=== PATIENT | female | born 1935 | race Caucasian/White ===

== ENCOUNTER 2016-10-12 03:01 | Emergency (ER) | payer MEDICARE, BC ==
[~2016-10-12] VITALS: Ht 167.6 cm; Wt 75.0 kg
[~2016-10-12 03:01] MED LIST: ASPI81TA82 PO; BIOT10004 PO; CALC-179 PO; COLON HEALTH; COZA100T PO; LOMO PO
[2016-10-12 03:04] VITALS: BP 206/89; PULSE 93; RESP 18; TEMP 98.4; O2SAT 97
[2016-10-12 05:06] VITALS: BP 220/95; PULSE 73; RESP 16; O2SAT 97
--- NOTE | 2016-10-12 05:52 | PD ---
HPI Chief Complaint: Hypertension Time Seen by Provider: 05:49 Travel History International Travel<30 days: No Contact w/Intl Traveler<30days: No Traveled to known affect area: No History of Present Illness HPI 81-year-old female with history of hypertension, poorly controlled on 3 medications, her primary care physician has sent her to Dr. Cruz, cardiology , for further evaluation and she has had a normal echo cardiogram. She is being set up for an outpatient stress test. She states that she woke out of sleep feeling diaphoretic and had a headache today, took her blood pressure and it was 200/100. She called her primary care physician and was told to come to the hospital for further evaluation. She denies any current chest pains, shortness of breath, or any other symptoms. She still is having a headache which is currently a 5 out of 10. She denies any vomiting, neurological deficits, or any other issues. Modifying Factors: None Associated Signs & Symptoms: Elevated blood pressure, headache Risk Factors: History of hypertension, poorly controlled on 3 medications PFSH Past Medical History Hx Anticoagulant Therapy: Yes (ASA) Arthritis: Yes Autoimmune Disease: No Blood Disorders: No Cancer: No Cardiovascular Problems: Yes (HTN) High Cholesterol: No Diabetes: No Endocrine: No Genitourinary: No Hypertension: Yes Musculoskeletal: Yes Neurologic: No Psychiatric: No Reproductive: No Respiratory: No Thyroid Disease: Yes (SMALL LUMP THYROID) ?: Not Past Surgical History Abdominal Surgery: Yes (GALLBLADDER) Body Medical Devices: TEETH IMPLANTED Cardiac Surgery: No Ear Surgery: No Endocrine Surgery: No Eye Surgery: Yes (CATARACT BILATERAL) Genitourinary Surgery: No Gynecologic Surgery: Yes (HYSTERECTOMY) Hysterectomy: Yes Oral Surgery: Yes (TONSILLECTOMY) Pacemaker: No Thoracic Surgery: No Other Surgery: Yes Social History Alcohol Use: Yes (RARELY) Tobacco Use: No Substance Use: No Allergies-Medications (Allergen,Severity, Reaction): Coded Allergies: Pentothal (Unverified Adverse Reaction, Severe, NAUSEA, 10/12/16) Percocet (Unverified Adverse Reaction, Severe, NIGHTMARES, 10/12/16) Reported Meds & Prescriptions Reported Meds & Active Scripts Active Reported Biotin 5 Mg Cap 5 Mg PO Aspirin 81 Mg Chew 81 Mg CHEW DAILY Diphenoxylate-Atropine 2.5-0.025 Mg Tab 2 Tab PO BID PRN Ranitidine (Ranitidine HCl) 300 Mg Tab 300 Mg PO HS Metoprolol Tartrate 25 Mg Tab 12.5 Mg PO Amlodipine (Amlodipine Besylate) 10 Mg Tab 10 Mg PO DAILY Losartan (Losartan Potassium) 100 Mg Tab 100 Mg PO DAILY Cozaar (Losartan Potassium) 100 Mg Tab 100 Mg PO DAILY [[facility] ] Calcium (Calcium & Phosphorus W/ Vitami) Tab 1 PO DAILY Biotin 1 000 Tab 5,000 Mcg PO DAILY Aspir-81 (Aspirin) 81 Mg Tab 81 Mg PO DAILY Lomotil (Diphenoxylate HCl/Atropine) 1 Tab Tab 2 Tab PO DAILY PRN Review of Systems Except as stated in HPI: all other systems reviewed are Neg Physical Exam Narrative GENERAL: Well-nourished, well-developed elderly white female patient in no acute distress. Awake and oriented 3. SKIN: Warm and dry. HEAD: Normocephalic. EYES: No scleral icterus. No injection or drainage. NECK: Supple, trachea midline. CARDIOVASCULAR: Regular rate and rhythm without murmurs, gallops, or rubs. RESPIRATORY: Breath sounds equal bilaterally. No accessory muscle use. GASTROINTESTINAL: Abdomen soft, non-tender, nondistended. MUSCULOSKELETAL: No cyanosis, or edema. BACK: Nontender without obvious deformity. No CVA tenderness. NEUROLOGICAL: Awake and alert. Cranial nerves II through XII intact. Motor and sensory grossly within normal limits. Five out of 5 muscle strength in all muscle groups. Normal speech. Data Data Last Documented VS Vital Signs Date Time Temp Pulse Resp B/P Pulse Ox O2 Delivery O2 Flow Rate FiO2 10/12/16 06:38 72 16 159/71 96 Room Air 10/12/16 03:04 98.4 Orders Electrocardiogram (10/12/16 05:09) Basic Metabolic Panel (Bmp) (10/12/16 05:09) Ckmb (Isoenzyme) Profile (10/12/16 05:49) Troponin I (10/12/16 05:49) Clonidine (Catapres) (10/12/16 06:00) CKMB (10/12/16 05:00) CKMB% (10/12/16 05:00) Labs Laboratory Tests Test 10/12/16 05:00 Sodium Level 144 MEQ/L Potassium Level 3.9 MEQ/L Chloride Level 110 MEQ/L Carbon Dioxide Level 26.8 MEQ/L Anion Gap 7 MEQ/L Blood Urea Nitrogen 14 MG/DL Creatinine 0.69 MG/DL Estimat Glomerular Filtration 82 ML/MIN Rate Random Glucose 109 MG/DL Calcium Level 8.5 MG/DL Total Creatine Kinase 130 U/L Creatine Kinase MB 3.2 NG/ML Troponin I LESS THAN 0.02 NG/ML MDM Medical Decision Making Medical Screen Exam Complete: Yes Emergency Medical Condition: Yes Medical Record Reviewed: Yes Interpretation(s) EKG shows no signs of acute ST-T changes. Normal sinus rhythm at a rate of 67 bpm. Laboratory Tests Test 10/12/16 05:00 Chloride Level 110 MEQ/L (98-107) Estimat Glomerular Filtration 82 ML/MIN (>89) Rate Random Glucose 109 MG/DL (74-106) Troponin I LESS THAN 0.02 NG/ML (0.02-0.05) Differential Diagnosis Headache, elevated blood pressureshypertensive urgency versus hypertensive emergency Narrative Course Cardiac enzymes are negative. BNP is negative. Blood pressure was initially elevated but clonidine and was given and on reevaluation at 6:50 AM, her blood pressures improved. At this point, my plan would be to release her with follow- up to primary care physician and harness maker. Return for any worsening in headaches, or new symptoms as needed. The plan has discussed with her and she states understanding. Diagnosis Primary Impression: Poorly-controlled hypertension Disposition: 01 DISCHARGE HOME Condition: Stable Courtney Martinez MD Oct 12, 2016 05:52
[2016-10-12] MEDS ORDERED: cloNIDine HCL 0.2 MG TAB PO ONE (06:00)
[2016-10-12 06:34] LABS: BICARBONATE 26.8 MEQ/L (21.0-32.0); POTASSIUM 3.9 MEQ/L (3.5-5.1)
[2016-10-12 06:37] LABS: CREATINE KINASE 130 U/L (26-192)
[2016-10-12 06:38] VITALS: BP 159/71; PULSE 72; RESP 16; O2SAT 96
[2016-10-12] MEDS ORDERED: METO25TA3 PO (06:43)
[2016-10-12] MEDS ORDERED: AMLO10TA2 PO (06:43)
[2016-10-12] MEDS ORDERED: DIPH2.5T14 PO (06:43)
[2016-10-12] MEDS ORDERED: BIOTCAP PO (06:43)
[2016-10-12] MEDS ORDERED: RANI300T PO (06:43)
[2016-10-12] MEDS ORDERED: LOSA100T PO (06:43)
[2016-10-12] MEDS ORDERED: ASPI81CH CHEW (06:43)
[2016-10-12 06:50] LABS: CKMB 3.2 NG/ML (0.5-3.6)
--- NOTE | 2016-10-12 17:02 | EKG ---
Date Performed: 10/12/2016 Time Performed: 06:36:03 PTAGE: 81 years EKG: Sinus rhythm NONSPECIFIC ST & T-WAVE ABNORMALITY Since previous tracing, no significant change noted BORDERLINE E CG PREVIOUS TRACING : 02/09/2015 05.52 DOCTOR: Paul Ozuna Interpretating Date/Time 10/12/2016 17:01:25
== END 2016-10-12 07:33 | disposition home or self-care (01) ==
LOC: NEPE 03:01
DX: I10 Essential (primary) hypertension (principal); R51 Headache; E07.9 Disorder of thyroid, unspecified; R94.31 Abnormal electrocardiogram [ECG] [EKG]; Z79.01 Long term (current) use of anticoagulants
CPT/HCPCS: 80048; 82550; 82552; 84484; 93005